=== PATIENT | male | born 1985 | race Caucasian/White ===

== ENCOUNTER 2017-01-01 11:05 | Emergency (ER) | payer OTHER ==
[~2017-01-01] VITALS: Ht 165.1 cm; Wt 72.6 kg
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
[2017-01-01] MEDS ORDERED: NAPR500T PO (13:02)
[2017-01-01] MEDS ORDERED: flexeril PO (13:02)
[2017-01-01 13:10] VITALS: BP 115/82
== END 2017-01-01 13:10 | disposition home or self-care (01) ==
LOC: ER 11:06
DX: S59.902A Unspecified injury of left elbow, initial encounter (principal); S39.92XA Unspecified injury of lower back, initial encounter; M47.815 Spondylosis without myelopathy or radiculopathy, thoracolumbar region; V43.52XA Car driver injured in collision with other type car in traffic accident, initial encounter; Y92.414 Local residential or business street as the place of occurrence of the external cause; Y99.8 Other external cause status
CPT/HCPCS: 71010; 71020; 72131; 72170; 99283

== ENCOUNTER → 2022-06-27 | Outpatient (CLI) | payer OTHER ==
[~2022-06-27] MED LIST: NAPR-1071 PO; flexeril PO
--- NOTE | 2022-06-27 16:18 | Diagnostic Imaging Report ---
INDICATION: Reported history of left testicular torsion at 15 years of age. Never removed. Indeterminate location at physical examination. TECHNIQUE: Real-time grayscale sonographic imaging and color vascular evaluation of the scrotum. CORRELATION STUDY: None. FINDINGS: RIGHT TESTICLE: 4.1 x 2.2 x 2.6 cm. The right testicle is in normal location and demonstrates homogeneous echotexture. There is vascular flow to the right testicle. The right epididymis appears unremarkable. LEFT TESTICLE: The left testicle is not visualized in its typical location. The left inguinal region was also interrogated; however, the left testicle is not visualized in the inguinal canal. No significant hydrocele and/or varicoceles. IMPRESSION: 1. There is normal location and appearance of the right testicle. 2. The left testicle cannot be identified either within the scrotal sac or in the inguinal region. Indeterminate as to location. Dictated by: Dictated on workstation # [id number]
== END ==
LOC: RAD 14:39
PROVIDERS: ATTEND Urology
DX: Z90.79 Acquired absence of other genital organ(s) (principal)
CPT/HCPCS: 76870

== ENCOUNTER → 2022-07-05 | Outpatient (CLI) | payer OTHER ==
[~2022-07-05] MED LIST changes: +CATHETER FLUSH 10 ML SYR IV PRN; +HOLD METFORMIN - RECEIVED CONTRAST 20 ML VIAL IV SCH; +IOHEXOL 350 MG/ML 100 ML (OMNIPAQUE 350) VIAL IV ONE; +NS 100 ML (IVPB) BAG IV ONE
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
== END ==
LOC: RAD FS 15:23
PROVIDERS: ATTEND Urology
DX: Z90.79 Acquired absence of other genital organ(s) (principal)
CPT/HCPCS: 74177; Q9967